=== PATIENT | female | born 1935 | race Caucasian/White ===

== ENCOUNTER 2016-11-17 05:33 | Day surgery (SDC) | payer MEDICARE, OTHER ==
[~2016-11-17] VITALS: Ht 158.8 cm; Wt 107.0 kg
== END 2016-11-17 06:08 | disposition home or self-care (01) ==
LOC: UNDOADMOB 05:33 → WOR 05:33 → SSS 05:33 → EDSTATUS 06:32 → SSS 15:55
DX: K80.20 Calculus of gallbladder without cholecystitis without obstruction (principal); Z53.9 Procedure and treatment not carried out, unspecified reason; K42.9 Umbilical hernia without obstruction or gangrene; Z85.038 Personal history of other malignant neoplasm of large intestine; Z90.49 Acquired absence of other specified parts of digestive tract; E78.5 Hyperlipidemia, unspecified; E11.9 Type 2 diabetes mellitus without complications; M19.90 Unspecified osteoarthritis, unspecified site; K21.9 Gastro-esophageal reflux disease without esophagitis; Z87.891 Personal history of nicotine dependence; Z79.899 Other long term (current) drug therapy

== ENCOUNTER 2016-12-29 07:17 | Observation (INO) | payer MEDICARE, OTHER ==
[~2016-12-29] VITALS: Ht 158.8 cm; Wt 103.1 kg
[2016-12-30] MEDS ORDERED: ENDOCET 5-3251 EACH PO (21:24)
[2016-12-30] MEDS ORDERED: NORCO 5-325 TA1 EACH PO (21:24)
[2016-12-30] MEDS ORDERED: OMEPRAZOLE40 MG PO (21:25)
[2016-12-30] MEDS ORDERED: COUMADIN2.5 MG PO (21:25)
[2016-12-30] MEDS ORDERED: GLUCOPHAGE-DPS500 MG PO (21:25)
[2016-12-30] MEDS ORDERED: COUMADIN5 MG PO (21:25)
[2016-12-30] MEDS ORDERED: LACRI-LUBE3.5 GM OU (21:26)
[2016-12-30] MEDS ORDERED: NEURONTIN DPS300 MG PO (21:26)
[2016-12-30] MEDS ORDERED: MICRO-K DPS10 MEQ PO (21:26)
[2016-12-30] MEDS ORDERED: BUMETANIDE1 MG PO (21:26)
--- NOTE | 2017-01-31 13:25 | OR ---
ADMIT: 12/29/2016 RM/LOC: 619 [facility] MR#: [id number] 26[address] [facility] [address] [place], [place] [address] ALONA OSORIO Jacey [address] [place] [id number] Operative/Delivery Room Report SEX: F AGE: 81 : 1935 SURGERY DATE: 12/29/2016 SURGEON: Tray Chawla MD PREOPERATIVE DIAGNOSES: Chronic cholecystitis and cholelithiasis, and incisional hernia. POSTOPERATIVE DIAGNOSIS: Chronic cholecystitis and cholelithiasis, and incisional hernia. FINAL PATHOLOGY: Pending on the gallbladder. PROCEDURE: Laparoscopic cholecystectomy. I did not do anything with the hernia. [employer] SPECIALIST: Beltran Rangel MD. ANESTHESIA: General endotracheal tube anesthesia. ESTIMATED BLOOD LOSS: 100 mL or less. INDICATION FOR PROCEDURE: Please see H and P. PROCEDURE IN DETAIL: After the risks, benefits, possible complications, and the alternatives had been explained, and informed consent had been obtained, the patient was taken back to the operating room, underwent general endotracheal tube anesthesia, and each surgical field was prepped and draped sterile manner. I first made an incision in the epigastric region and kind of went down sharply and placed an 11 mm port through there to insufflate the abdomen, kind of trying to get through the falciform ligament there. This is because she has had a previous right kind of transverse incision supraumbilically for an open right hemicolectomy, and it does have evidence of a hernia there, but the hernia per se is nonobstructive or giving any indications, and so I told her, depends on what we see and find in there will depend on whether we do anything as far as automatic spooler operator. So, once we got that in, there was no much room and we had to place a 5 mm port up high, was able to slowly take down some of these adhesions until I got to where it looks like probably part of the transverse colon was stuck up there pretty good, and so, I stopped there it gave me enough room to then put another 5 mm port and put my camera in, and then still like I said, not a lot of room, and her ports were also closed, but slowly cleaned down adhesions off the gallbladder, there was little bit of bowel stuck up there, and this was cleaned out. Once all these adhesions were cleaned down and it added an extra half an hour to the case, slowly dissected out the cystic duct coming directly off the gallbladder. As seen in picture #2 and picture #1, is these adhesions were cleaned down, and divided that. Behind this, then the cystic artery was dissected out proximally, distally, and divided, and then the gallbladder was removed from the liver bed using electrocautery and EndoShears. In the process, cut into kind of one of the little venous sinus rule superficial ADMIT: 12/29/2016 RM/LOC: 619 [facility] MR#: [id number] [address] [place] [id number] ALONA OSORIO [address] [place] [address] Operative/Delivery Room Report SEX: F AGE: 81 : 1935 there on the liver bed, and in doing so, while we had a little bit more blood loss, took a lot of cautery to kind a get that stopped, then was oozing again on a couple different occasions, and again we re-cauterized it at a high setting and ultimately got a new Surgicel and put that in the gallbladder bed, packed it off for awhile, and left it alone. We looked at it, inspected it again, and there was still some bleeding. We cauterized again, repacked, watched it for a while and then everything seemed to be under control nicely. There was a Ray-Wendi we had placed and there, we removed it. Removed the gallbladder from liver bed completely, then placed an EndoCatch bag and removed it through the epigastric port site. Irrigated it with as much as irrigation possible. I inspected the liver bed, again, you can see there in picture #3 that is kind of our new Surgicel across the liver bed there. No signs of any bleeding. Removed as much as irrigation. Injected 0.5% Marcaine for pain control. I then closed the fascia of the epigastric port site with an 0-Polysorb suture with a suture passer, a couple different stitches. Once that was done, I then removed all the other ports and closed the skin with 4-0 Monocryl. She tolerated the procedure well, was extubated and taken to recovery room in stable and satisfactory condition. Tray Chawla MD/ mila JOB #: [id number] CC: Tray Chawla, Attending Physician Mello Ferguson, Family Physician
--- NOTE | 2017-01-31 13:25 | HP ---
ADMIT: 12/29/2016 RM/LOC: [facility] MR#: [id number] 26[address] [facility] [address] [place], [place] [address] ALONA OSORIO Jacey [address] [place] [id number] Pre-OP History and Physical SEX: F AGE: 81 : 1935 DATE OF SERVICE: PREOPERATIVE DIAGNOSES: Chronic cholecystitis, cholelithiasis, as well as an incisional hernia. PLAN: Laparoscopic cholecystectomy and possible laparoscopic repair of this incisional hernia, possible open procedure. HISTORY OF PRESENT ILLNESS: This patient is an 81-year-old female, who I had seen later part of last year and then I have actually seen her up in [place] a couple of times. Dr. Ferguson is her primary care physician, he sent an H and P is well. I had had her on the schedule 1 time and then he cancelled her, felt maybe she had some low-grade diverticulitis, treated with antibiotics. She continues to have problems with his right upper quadrant epigastric pain, some mild elevation of liver tests, complicating feature is she has had a previous right colon I think in with a transverse kind of right upper abdominal incision and appears to have a hernia there, so she may be somebody we cannot get down laparoscopically and I have told her that. Main reason I am not trying to do it up in [place]. I have discussed this at length with her and her son the risks, benefits, possible complications, and alternatives. She understands and wishes to proceed. PAST MEDICAL HISTORY: Significant for the above as well as atrial fibrillation, hyperlipidemia, obesity. She is on chronic anticoagulation with Coumadin, that been on hold. Her last scope I think was in 2007, that was normal. CURRENT MEDICATIONS: Please see list from Dr. Ferguson. FAMILY HISTORY: Noncontributory for this. The patient, I believe, lives in a jail, does not smoke, does not drink significant alcohol or illicit drugs. ALLERGIES: NO KNOWN DRUG ALLERGIES. ADMIT: 12/29/2016 RM/LOC: [facility] MR#: [id number] [address] [id number] ALONA OSORIO [address] [place] [address] Pre-OP History and Physical SEX: F AGE: 81 : 1935 PHYSICAL EXAMINATION: GENERAL: She is alert. She is oriented. She is obese. She is in no acute distress. HEENT: Her sclerae are nonicteric. No JVD detected. LUNGS: Clear anteriorly. HEART: Irregular. No significant murmurs detected. ABDOMEN: Obese, pain in her right upper quadrant. No peritoneal signs. No mass or organomegaly. She does appear to have an incisional hernia. EXTREMITIES: Lower extremities with mild edema. Otherwise, no clubbing or cyanosis. ASSESSMENT AND PLAN: As above. Tray Chawla MD/ mila JOB #: [id number] CC: Tray Chawla, Attending Physician UNKNOWN, Family Physician
== END 2016-12-30 19:10 | disposition home or self-care (01) ==
LOC: SSS 07:17 → 6PED 11:32
PROVIDERS: ADMIT Surgery
PROC: 0FT44ZZ Resection of Gallbladder, Percutaneous Endoscopic Approach (ICD-10-PCS; principal; 2016-12-29)
DX: K80.10 Calculus of gallbladder with chronic cholecystitis without obstruction (principal); K43.2 Incisional hernia without obstruction or gangrene; I48.91 Unspecified atrial fibrillation; J44.9 Chronic obstructive pulmonary disease, unspecified; E78.5 Hyperlipidemia, unspecified; E11.9 Type 2 diabetes mellitus without complications; Z79.01 Long term (current) use of anticoagulants; Z90.49 Acquired absence of other specified parts of digestive tract; Z98.890 Other specified postprocedural states